=== PATIENT | male | born 1960 | race Two or more races ===

== ENCOUNTER 2025-05-17 09:54 | Outpatient (CLI) | payer MEDICAID ==
[~2025-05-17] VITALS: Ht 163.8 cm; Wt 59.0 kg
[2025-05-17 10:37] LABS: TOTAL HEMOGLOBIN 13.6 G/dl (13.5-17.5)
[2025-05-17] MEDS: albuterol 2.5 MG/3 ML nebule NEB ONE (11:12)
[2025-05-17 11:21] VITALS: PULSE 63; RESP 14; O2SAT 95
[2025-05-17 11:33] VITALS: PULSE 59; RESP 15
--- NOTE | 2025-05-18 15:12 | PROCEDURE NOTE - Respiratory ---
Procedure Note-Respiratory Providers to Copies To 1: CONCHIS STEVENS MD Procedure Name: This is a complete pulmonary function study dated May 17, 2025. Hemoglobin measurement was done as part of the study. Spirometry measurements: There is substantial reduction in both the forced vital capacity and the FEV1. The FEV1 ratio is also reduced. All of the measured flow rates show substantial reduction. There is not much change after inhaled bronchodilator was administered. Spirometry documents severe obstructive ventilatory defect. Lung volume measurements: The functional residual capacity is in the normal range. The residual volume is borderline elevated. Lung diffusion measurement: The DLCO measurement is severely reduced. It is noted that the KVO measurement as well as the alveolar volume measurement are both significantly reduced. The hemoglobin measurement is normal. Airway resistance measurement: The airway resistance shows elevation. Conclusion: This study shows severe abnormality. There is evidence for severe obstructive ventilatory defect with loss of lung diffusion capacity. These findings are consistent with the patient's diagnosis of smoking-related COPD. It is strongly recommended that the patient abstain from cigarette smoking. Even though the patient did not seem to respond in the laboratory setting to the inhaled bronchodilator, a clinical trial of inhaled bronchodilators still might prove to be useful. We have no previous studies for comparison. It is noted on the patient's blood work that the blood shows 5.7% of the hemoglobin molecules are occupied by carbon monoxide. It is likely that the patient has smoked cigarettes within several hours of the blood draw. CONCHIS STEVENS MD May 18, 2025 15:12
== END 2025-05-17 23:59 | disposition home or self-care (01) ==
LOC: RT 09:54
PROVIDERS: ATTEND Internal Medicine Pulmonary Disease
DX: J44.9 Chronic obstructive pulmonary disease, unspecified (principal)
CPT/HCPCS: 85018; 94060; 94727; 94729; 94760